=== PATIENT | female | born 1965 | race American Indian/Alaskan Native ===

== ENCOUNTER 2016-10-01 03:01 | Emergency (ER) | payer SELFPAY ==
[2016-10-01] MEDS ORDERED: NACL 0.9% 1000 ML 1,000 ML ONE (04:18)
[2016-10-01] MEDS ORDERED: MORPHINE ONE (04:18)
[2016-10-01 04:19] LABS: Basophils % (Auto) 0.1 % (0.0-1.8); Hematocrit 25.7 % (30.3-42.9); Hemoglobin 7.9 gm/dl (10.1-14.3); Mean Corpuscular HGB Conc 31 % (30-34); Platelet Count 293 K/mm3 (140-440); Red Blood Count 4.17 M/mm3 (3.65-5.03); Red Cell Distribution Width 15.5 % (13.2-15.2)
[2016-10-01 04:20] LABS: Mean Corpuscular Hemoglobin 19 pg (28-32); Mean Corpuscular Volume 62 fl (79-97)
[2016-10-01 04:30] LABS: INR 1.29 (0.87-1.13)
[2016-10-01 04:44] LABS: Alanine Aminotransferase 13 units/L (7-56); Albumin 3.6 g/dL (3.9-5); Albumin/Globulin Ratio 1.4 %; Alkaline Phosphatase 57 units/L (35-129); Anion Gap 21 mmol/L; Bilirubin,Total 0.5 mg/dL (0.1-1.2); Blood Urea Nitrogen 7 mg/dL (7-17); Calcium 7.5 mg/dL (8.4-10.2); Carbon Dioxide 17 mmol/L (22-30); Chloride 104.2 mmol/L (98-107); Glucose 122 mg/dL (65-100); Potassium 4.3 mmol/L (3.6-5.0); Sodium 138 mmol/L (137-145); Total Protein 6.2 g/dL (6.3-8.2)
[2016-10-01] MEDS ORDERED: MORPHINE IV ONE (06:18)
[2016-10-01] MEDS ORDERED: NACL 0.9% 1000 ML IV ONE (06:28)
--- NOTE | 2016-10-01 06:29 | Emergency Department Report ---
HPI - General Chief Complaint: Syncope Time Seen by Provider: 10/01/16 06:10 - HPI HPI: Room 2 The patient is a 51-year-old female presenting with a chief complaint of syncope. The patient reportedly had liposuction performed yesterday by Dr. Gary Elliott Patient was in bed with her significant other and apparently had gotten out of the bed to go to the bathroom (the patient states she does not remember getting out of bed). Significant other states he hurt his thump and awakened to find the patient sliding down onto the floor. The patient does not remember this. The significant other states when he came to pick her up the patient was conscious. The patient does remember the significant other picking her up. The patient states she felt weak at that time with shortness of breath and palpitations. Patient denied chest pain, nausea/vomiting or headache at any time. When asked how she is feeling currently the patient states "good." The patient and significant other state they spoke with the plastic surgeon ( Dr. Gary Elliott) this morning while in the ED. The patient states she has a history of anemia and her hemoglobin is usually around 10 Location: [see above] Duration: [see above] Quality: Syncope Severity:. Moderate Modifying factors: [see above] Context: [see above] Mode of transportation: [not driving] ED Past Medical Hx - Past Medical History Hx Hypertension: Yes - Surgical History Additional Surgical History: 3, hysterectomy, liposuction (09/30/2016 ) - Family History Family history: no significant - Social History Smoking Status: Never Smoker Substance Use Type: None - Medications Home Medications: Home Medications Medication Instructions Recorded Confirmed Last Taken Type Losartan [Cozaar] 25 mg PO QDAY 10/01/16 10/01/16 1 Day Ago History 25 amLODIPine [Norvasc] 5 mg PO DAILY 10/01/16 10/01/16 1 Day Ago History 5 ED Review of Systems ROS: Stated complaint: POST SURGERY BLEEDING Other details as noted in HPI Comment: All other systems reviewed and negative Constitutional: weakness Eyes: denies: eye pain, eye discharge, vision change ENT: denies: ear pain, throat pain Respiratory: shortness of breath Cardiovascular: palpitations. denies: chest pain Endocrine: no symptoms reported Gastrointestinal: denies: abdominal pain, nausea, diarrhea Genitourinary: denies: urgency, dysuria, discharge Musculoskeletal: denies: back pain, joint swelling, arthralgia Skin: denies: rash, lesions Neurological: denies: headache, weakness, paresthesias Psychiatric: denies: anxiety, depression Physical Exam - Physical Exam Vital Signs: Vital Signs 10/01/16 10/01/16 10/01/16 03:04 03:45 03:53 Temperature 98.7 F Pulse Rate 116 H 97 H Respiratory 18 18 18 Rate Blood Pressure 111/68 Blood Pressure 102/47 [Left] O2 Sat by Pulse 100 100 100 Oximetry 10/01/16 05:10 Temperature Pulse Rate 97 H Respiratory 18 Rate Blood Pressure Blood Pressure 105/52 [Left] O2 Sat by Pulse 100 Oximetry Physical Exam: GENERAL: The patient is well-developed well-nourished female lying on stretcher and right lateral decubitus position not appearing to be in acute distress. [] HEENT: Normocephalic. Atraumatic. Extraocular motions are intact. Patient has moist mucous membranes. NECK: Supple. Trachea midline CHEST/LUNGS: Clear to auscultation. There is no respiratory distress noted. HEART/CARDIOVASCULAR: Regular. There is tachycardia. There is no gallop rub or murmur. ABDOMEN: Abdomen is soft. 2 surgical sites in the lower abdomen appeared clean and open. No active bleeding seen. The patient has a large amount of gauze overlying her surgical sites that appear saturated with serosanguineous fluid. Patient has normal bowel sounds. There is no abdominal distention. SKIN: There is no rash. There is no edema. There is no diaphoresis. NEURO: The patient is awake, alert, and oriented. The patient is cooperative. The patient has normal speech MUSCULOSKELETAL: There is no evidence of acute injury. ED Course Vital Signs 10/01/16 10/01/16 10/01/16 03:04 03:45 03:53 Temperature 98.7 F Pulse Rate 116 H 97 H Respiratory 18 18 18 Rate Blood Pressure 111/68 Blood Pressure 102/47 [Left] O2 Sat by Pulse 100 100 100 Oximetry 10/01/16 05:10 Temperature Pulse Rate 97 H Respiratory 18 Rate Blood Pressure Blood Pressure 105/52 [Left] O2 Sat by Pulse 100 Oximetry ED Medical Decision Making - Lab Data Result diagrams: 10/01/16 03:51 10/01/16 03:51 Laboratory Tests 10/01/16 10/01/1610/01/17 03:45 03:51 03:51 WBC 13.0 H RBC 4.17 Hgb 7.9 L Hct 25.7 L MCV 62 L MCH 19 L MCHC 31 RDW 15.5 H Plt Count 293 Lymph % (Auto) 6.1 L Stevens % (Auto) 6.7 Eos % (Auto) 0.0 Baso % (Auto) 0.1 Lymph # 0.8 L Stevens # 0.9 H Eos # 0.0 Baso # 0.0 Seg Neutrophils % 87.1 H Seg Neutrophils # 11.4 H PT 16.0 H INR 1.29 H Sodium Potassium Chloride Carbon Dioxide Anion Gap BUN Creatinine Estimated GFR BUN/Creatinine Ratio Glucose Calcium Total Bilirubin AST ALT Alkaline Phosphatase Troponin T Total Protein Albumin Albumin/Globulin Ratio Blood Type O POSITIVE Antibody Screen Negative 10/01/16 03:51 WBC RBC Hgb Hct MCV MCH MCHC RDW Plt Count Lymph % (Auto) Stevens % (Auto) Eos % (Auto) Baso % (Auto) Lymph # Stevens # Eos # Baso # Seg Neutrophils % Seg Neutrophils # PT INR Sodium 138 Potassium 4.3 Chloride 104.2 Carbon Dioxide 17 L Anion Gap 21 BUN 7 Creatinine 0.7 Estimated GFR > 60 BUN/Creatinine Ratio 10.00 Glucose 122 H Calcium 7.5 L Total Bilirubin 0.5 AST 19 ALT 13 Alkaline Phosphatase 57 Troponin T < 0.010 Total Protein 6.2 L Albumin 3.6 L Albumin/Globulin Ratio 1.4 Blood Type Antibody Screen - EKG Data -: EKG Interpreted by Me EKG shows normal: sinus rhythm Rate: tachycardia (102 bpm) - EKG Data When compared to previous EKG there are: previous EKG unavailable Interpretation: other (no ischemic changes seen) - Medical Decision Making I discussed with the patient and significant other at length my concerns with her presentation. I explained how she mentioned her baseline hemoglobin is 10 and it is currently 7.9. Explained that with her history of anemia and now serosanguineous discharge syncope and collapse with tachycardia my concern for hypovolemic shock. I explained to the patient that she may if she leaves the hospital AGAINST MEDICAL ADVICE. Patient and significant other verbalized understanding of increased morbidity and/or mortality should she leave the hospital against medical review specialist. The patient is significant otherwise if they had any other questions they replies no. The patient and significant other were strongly urged to stay in the hospital and not leave AGAINST MEDICAL ADVICE but if they change their mind she should return to the hospital immediately - Differential Diagnosis symptomatic anemia, hypovolemic shock, PE, sepsis, Critical care attestation.: If time is entered above; I have spent that time in minutes in the direct care of this critically ill patient, excluding procedure time. ED Disposition Clinical Impression: Syncope and collapse, Symptomatic anemia, Postoperative bleeding from incision Disposition: LEFT AGAINST MEDICAL ADVICE Is pt being admited?: No Does the pt Need Aspirin: No Condition: Serious Instructions: Syncope (ED) Forms: AMA Form Time of Disposition: 06:25 (patient leaving AMA)
[2016-10-01 06:34] VITALS: BP 103/50
== END 2016-10-01 07:07 | disposition left against medical advice (07) ==
LOC: ED 03:01
DX: L76.22 Postprocedural hemorrhage of skin and subcutaneous tissue following other procedure (principal); D64.9 Anemia, unspecified; R55 Syncope and collapse; I10 Essential (primary) hypertension; Z98.890 Other specified postprocedural states
CPT/HCPCS: 36415; 80053; 84484; 85025; 85610; 86850; 86900; 86901; 93005; 93010; 96361; 96374; 99284; J2270; J7030; 71010